=== PATIENT | female | born 1930 | race Caucasian/White ===

== ENCOUNTER 2019-07-10 03:24 | Observation (INO) ==
[2019-07-10 03:35] LABS: ABG Base Excess -2.6 mmol/L (-2.4-2.3); ABG HCO3 21.6 mmhg (22.0-26.0); ABG Oxygen Saturation 95 % (90-100); ABG PCO2 32.7 mmhg (35.0-45.0); ABG PH 7.44 mmol/L (7.35-7.45); ABG PO2 74.5 mmhg (80-100); ABG TCO2 22.6 mmhg (23-27)
[2019-07-10 03:36] LABS: Allen's Test Acceptable; Oxygen ROOM AIR %
--- NOTE | 2019-07-10 03:41 | Emergency Department Note ---
ED Disposition Clinical Impression: DARSHANA (acute kidney injury) Chest pain Qualifiers: Chest pain type: precordial pain Qualified Code(s): R07.2 - Precordial pain A-fib Qualifiers: Atrial fibrillation type: unspecified Qualified Code(s): I48.91 - Unspecified atrial fibrillation Hypothyroidism Qualifiers: Hypothyroidism type: acquired Qualified Code(s): E03.9 - Hypothyroidism, unspecified Disposition: Admitted as Observation Condition on Discharge: Good - Critical Care Critical Care Time: No Attestation: On , the high probability of a clinically significant, sudden or life threatening deterioration of the following system(s) required my full and direct attention, intervention and personal management. The time I documented below is in addition to time spent performing reported procedures but includes the following listed in this critical care notation. Medical Decision Making - Medical Records Medical records reviewed: Yes: I reviewed the patient's medical records. - Santy Inquiry Pt receiving controlled substance: No Vital Signs: 07/10/19 03:25 07/10/19 05:25 Temperature 98.7 F Temperature Source Oral Pulse Rate [Left Radial] 78 84 Respiratory Rate 20 17 Blood Pressure [Right Arm] 163/84 H 158/64 H Blood Pressure Mean [Right Arm] 110 95 Blood Pressure Source [Right Arm] Automatic Cuff Automatic Cuff Blood Pressure Position [Right Arm] Sitting Right Lateral 02 Sat by Pulse Oximetry 97 100 Oxygen Delivery Method Room Air Nasal Cannula Oxygen Flow Rate (LPM) 2 - Lab Data Lab results reviewed: Yes: I reviewed the patient's lab results. Lab Results 07/10/19 03:27: Troponin I < 0.02 07/10/19 03:27: WBC 6.9, RBC 4.54, Hgb 14.4, Hct 43.5, MCV 95.8, MCH 31.8 H, MCHC 33.2, RDW 13.6, Plt Count 233, MPV 8.1, Neut % (Auto) 67.1, Lymph % (Auto) 21.7, [place] % (Auto) 8.8, Eos % (Auto) 1.5, Baso % (Auto) 0.8, Neut # (Auto) 4.6, Lymph # (Auto) 1.5, [place] # (Auto) 0.6, Eos # (Auto) 0.1, Baso # (Auto) 0.1 07/10/19 03:27: Sodium 130 L, Potassium 4.5, Chloride 94 L, Carbon Dioxide 26, Anion Gap 14.5, BUN 32 H, Creatinine 1.47 H, Estimated Creat Clear 28, Estimated GFR 34 L, Est GFR ( Amer) 41 L, Glucose 140 H, Calcium 9.2 07/10/19 03:27: Total Bilirubin 1.2 H, Direct Bilirubin 0.4 H, Indirect Bilirubin 0.8, AST 32, ALT 36, Alkaline Phosphatase 109, Total Protein 7.5, Albumin 4.0 07/10/19 03:33: Specimen Source Left radial, O2 % Room air, ABG pH 7.44, ABG pCO2 32.7 L, ABG pO2 74.5 L, ABG HCO3 21.6 L, ABG Total CO2 22.6 L, ABG O2 Saturation 95, ABG Base Excess -2.6 L, Chapo Test Acceptable Result diagrams: 07/10/19 03:27 07/10/19 03:27 Orders (Tests/Meds): ED MEDICATIONS Discontinued Medications Generic Name Dose Route Start Last Admin Trade Name Freq PRN Reason Stop Dose Admin Aspirin 324 mg 07/10/19 03:35 07/10/19 03:37 Aspirin 81mg Chewable Tablet PO 07/10/19 03:36 324 mg ONCE ONE Administration Nitroglycerin 1 gm 07/10/19 05:40 Nitroglycerin 1 Inch Oint Udp TD 07/10/19 05:41 ONCE ONE ORDERS Category Date Time Status BNP [B-Type Natriuretic Peptide] Stat Lab 07/10/19 03:27 Received Troponin I Q3H Lab 07/10/19 06:45 Ordered Troponin I Q3H Lab 07/10/19 09:45 Ordered Arterial Blood Gas Stat RT 07/10/19 03:34 Ordered - Radiology Data #1 Image(s): Chest Image Reviewed: Yes I reviewed the patient's radiology image Preliminary Findings: Abnormal (changes rt base ) - ECG Data Tracing #1 Arrhythmias present: afib Ischemic changes: non-specific ST-T wave changes - Physician Consults Physician Consulted: lexy Reason -: Admission - DANIELLE Score for Non-Stemi Age of Patient: 80-89 years old Heart Rate: 70-89 bpm Systolic Blood Pressure: 160-199 mmHg Serum Creatinine: 1.20-1.59 mg/dl CHF [place] Class: II-Pulmonary Rales or Jug Other Risk Factors: None Non-Stemi Risk Score: 140 Resp/SOB HPI - General Chief Complaint: Shortness of Breath/Dyspnea Stated Complaint: CHEST PAIN; DIFFICULTY BREATHING Time Seen by Provider: 07/10/19 03:40 Mode of Arrival: Ambulatory Source of Information: Patient, Medical Record Limitations: No Limitations Description of Symptoms (Recalled from ER Triage Doc. by RN): pt stated she woke up with sharp pain in the center of her left chest this morning about an hour ago rating a 10 on a 0-10 pain scale and SOB. pt stated she is no longer experiencing chest pain at this time. - History of Present Illness pt with episode of chest pain which lasted about 30 min with sob - hx of a fib MD Complaint: shortness of breath, chest pain Onset (ago): minute(s) Severity: moderate Consistency/Duration: now resolved Associated symptoms: denies other symptoms Treatment prior to arrival: none - Related Data Home oxygen amount: none Home Medications Medication Instructions Recorded Confirmed amlodipine 5 mg tablet 5 mg PO ONCE 07/25/17 07/10/19 apixaban 5 mg tablet 5 mg PO BID 07/25/17 07/10/19 folic acid-vit B6-vit B12 2.5 1 tab PO BID 07/25/17 07/10/19 mg-25 mg-1 mg tablet isosorbide mononitrate 30 mg 30 mg PO QAM 07/25/17 07/10/19 tablet,extended release 24 hr levothyroxine 125 mcg capsule 125 mcg PO ONCE 07/25/17 07/10/19 metformin 500 mg tablet 500 mg PO BID 07/25/17 07/10/19 metoprolol succinate 50 mg 50 mg PO ONCE 07/25/17 07/10/19 tablet,extended release 24 hr Allergies Allergy/AdvReac Type Severity Reaction Status Date / Time No Known Allergies Allergy Verified 07/25/17 09:53 [facility] History - Hepatitis A Screen Drug use history?: No High risk sexual behaviors?: No History of sexually transmitted infection?: No Currently employed?: No Childcare worker?: No Do you have indoor plumbing?: Yes Do you have electricity?: Yes Attestation statement:: This patient has been screened for Hepatitis A risk factors. I have reviewed the patient's past medical history: Yes Medical History: Reports:: Diabetes Mellitus Type 2 Laterality Cases: Bilateral: Tonsillectomy - Social History Smoking Status: Unknown if ever smoked Alcohol Intake: never Occupational Status: other ROS Obtained: Yes All systems reviewed & no additional complaints - Constitutional Constitutional: Denies fever(s) - Eyes Eyes: Denies change in vision - ENT Ears, Nose, Mouth, and Throat: Denies sore throat - Cardiovascular Cardiovascular: Reports chest pain, Denies dyspnea - Respiratory Respiratory: No cough - Gastrointestinal Gastrointestingal: Denies: abdominal pain - Genitourinary Female Genitourinary: Denies hematuria - Musculoskeletal Musculoskeletal: Denies joint swelling - Integumentary/Breasts Skin/Breast: Denies rash - Neurologic Neurologic: Denies focal weakness, Denies seizure-like activity Physical Exam - General General appearance: alert - Head Head exam: normocephalic - Eye Eye exam: Present: PERRL, EOMI. Absent: scleral icterus - ENT ENT exam: Present: mucous membranes dry - Neck Neck exam: Present: trachea midline - Respiratory Respiratory exam: Present: normal lung sounds bilaterally. Absent: respiratory distress - Cardiovascular Cardiovascular exam: Present: irregular rhythm, systolic murmur, +S4 - Abdominal Exam Abdominal exam: Present: soft. Absent: tenderness - Extremities Exam Extremities exam: Absent: calf tenderness - Neurological Exam Neurological exam: Present: alert, CN II-XII intact - Psychiatric Psychiatric exam: Present: normal affect - Skin Skin exam: Absent: rash
[2019-07-10 03:45] LABS: Basophils # 0.1 K/mm3 (0-0.2); Basophils % 0.8 % (0.1-2.0); Eosinophils # 0.1 K/mm3 (0.0-0.4); Eosinophils % 1.5 % (0.1-12.0); Hematocrit 43.5 % (37.0-47.0); Hemoglobin 14.4 g/dL (12.2-16.2); Lymphocytes # 1.5 K/mm3 (0.7-4.5); Lymphocytes % 21.7 % (10-50); Mean Corpuscular HGB Conc 33.2 g/dL (31.8-35.4); Mean Corpuscular Volume 95.8 fl (81-99); Mean Platelet Volume 8.1 fl (7.4-10.4); Monocytes # 0.6 K/mm3 (0.1-1.0); Monocytes % 8.8 % (1.7-9.3); Neutrophils # 4.6 K/mm3 (1.8-7.8); Neutrophils % 67.1 % (37.0-80.0); Platelet Count 233 K/mm3 (142-424); Red Blood Count 4.54 M/mm3 (4.20-5.40); Red Cell Distribution Width 13.6 % (11.5-17.5); White Blood Count 6.9 K/mm3 (4.8-10.8)
[2019-07-10 03:59] LABS: Anion Gap 14.5 mEq/L (5-15); Calcium 9.2 mg/dL (8.5-10.1)
[2019-07-10 04:51] LABS: Bilirubin,Direct 0.4 mg/dL (0.0-0.2); Bilirubin,Indirect 0.8 mg/dL (0.0-0.9); Bilirubin,Total 1.2 mg/dL (0.2-1.0); Total Protein,Serum 7.5 g/dL (6.4-8.2)
--- NOTE | 2019-07-10 07:58 | Pharmacy Consult Notes ---
[facility] Pharmacy VTE Monitoring - Patient Demographics Admission date: 07/10/19 Report Date: 07/10/19 Time: 07:57 Allergies/Adverse Reactions: Patient Allergies No Known Allergies Allergy (Verified 07/25/17 09:53) Height: 1.57 m Weight: 64.127 kg Patient Problems: Current Active Problems Chest pain (Acute) DARSHANA (acute kidney injury) (Acute) A-fib (Acute) Hypothyroidism (Acute) - VTE Risk Labs: VTE Related Lab Results Hgb 14.4 g/dL (12.2-16.2) 07/10/19 03:27 Hct 43.5 % (37.0-47.0) 07/10/19 03:27 Plt Count 233 K/mm3 (142-424) 07/10/19 03:27 BUN 32 mg/dL (7-18) H 07/10/19 03:27 Creatinine 1.47 mg/dL (0.55-1.02) H 07/10/19 03:27 Estimated Creat Clear 28 mL/min (50-200) 07/10/19 03:27 Was VTE Risk Assessment Performed: Yes VTE Score: 1 VTE Risk Level: Very Low Risk - Prophylaxis VTE Prophylaxis Ordered?: Yes Types of VTE Prophylaxis: TEDS Knee High, Pharmacological Pharmacologic Type: Other (ELIQUIS) - VTE Diagnosis Confirmed Treatment or plan recommended: Continue Current Treatment
--- NOTE | 2019-07-10 08:12 | History & Physical Report ---
*Admission Date: 07/10/19 *Chief complaint: chest pain *History of present illness: Ms. Kaminski is an 88-year-old female with a history of hyperlipidemia, hypothyroidism, solitary kidney, COPD, GERD, type 2 diabetes, and coronary artery disease. Her protein purification scientist is Dr. Keane and she thinks she has received 2 stents in the past, one in 2011 and one in 2014. She states approximately 1 week ago she had some left-sided chest pain that radiated up into her neck. This resolved on its own. She woke up in the middle of the night last night with left-sided chest pain that radiated into her back. She states she was very short of breath but denied any diaphoresis. The pain continued to worsen over the next hour, therefore she presented to the emergency room. She states she was given aspirin and nitroglycerin in the emergency room and her chest pain improved. By the time she reached the second floor, it was gone and has not returned. She did feel some palpitations along with the chest pain. She has a family history of heart disease. She does not currently smoke. She was admitted for further evaluation and treatment and cardiology was consulted. [facility] History I have reviewed the patient's past medical history: Yes Medical History: Reports:: Atrial Fibrillation, Chronic Obstructive Pulmonary Disease (COPD), Coronary Artery Disease, Diabetes Mellitus Type 2, Gastroesophageal Reflux Disease(GERD), Hypertension Denies:: Cancer, Diabetes Mellitus Type 1, Internal Pacemaker, MRSA *Have you ever received a pneumonia vaccine?: Yes *Have you received a flu vaccine this season?: No (PT UNSURE) Other Medical History: Reports: Hypothyroidism, Thyroid Disease, Other (Solitary kidney) Laterality Cases: Bilateral: Cataract, Tonsillectomy Other Surgeries: Yes: Cardiac Catheterization, Coronary Stent, Thyroidectomy, Other (kidney removed, carotid endarterectomy, uterine prolapse). No: Pacemaker Amputation: No Fractures: No - *Social History Educational Level: Completed High School Smoking Status: Never smoker Alcohol Intake: never *Occupational Status:: retired Housing: house Household Members: family *Travel in the last 8 weeks: None Family Hx:: Coronary Artery Disease, Diabetes Review of Systems - Constitutional Denies chills, Denies fever(s), Denies weakness - Eyes Denies blurry vision, Denies double vision - ENT Reports nasal congestion, Denies sore throat - *Cardiovascular Reports chest pain, Reports shortness of breath, Reports rapid, pounding, or irregular heartbeat, Denies excessive sweating, Denies leg swelling - *Respiratory Reports shortness of breath, Denies chest congestion, Denies cough - *Gastrointestinal Denies abdominal pain, Denies change in stools, Denies nausea, Denies vomiting - *Genitourinary Denies difficulty urinating, Denies painful urination - *Musculoskeletal Denies joint pain, Denies body aches - *Neurologic Denies localized weakness, Denies headache(s), Denies seizure-like activity, Denies dizziness, Denies weakness Meds Home Medications Medication Instructions Recorded Confirmed Type amlodipine 5 mg tablet 5 mg PO ONCE 07/25/17 07/10/19 History apixaban 5 mg tablet 5 mg PO BID 07/25/17 07/10/19 History folic acid-vit B6-vit B12 2.5 1 tab PO BID 07/25/17 07/10/19 History mg-25 mg-1 mg tablet isosorbide mononitrate 30 mg 30 mg PO QAM 07/25/17 07/10/19 History tablet,extended release 24 hr levothyroxine 125 mcg capsule 125 mcg PO ONCE 07/25/17 07/10/19 History metformin 500 mg tablet 500 mg PO BID 07/25/17 07/10/19 History metoprolol succinate 50 mg 50 mg PO ONCE 07/25/17 07/10/19 History tablet,extended release 24 hr Allergies Allergy/AdvReac Type Severity Reaction Status Date / Time No Known Allergies Allergy Verified 07/25/17 09:53 Exam Vital signs and Labs for Last 24 Hours: Temp Pulse Resp BP Pulse Ox 98.7 F 82 18 152/82 H 95 07/10/19 06:36 07/10/19 06:36 07/10/19 06:36 07/10/19 06:36 07/10/19 05:48 Laboratory Results - last 24 hr 07/10/19 03:27: Troponin I < 0.02 07/10/19 03:27: WBC 6.9, RBC 4.54, Hgb 14.4, Hct 43.5, MCV 95.8, MCH 31.8 H, MCHC 33.2, RDW 13.6, Plt Count 233, MPV 8.1, Neut % (Auto) 67.1, Lymph % (Auto) 21.7, [place] % (Auto) 8.8, Eos % (Auto) 1.5, Baso % (Auto) 0.8, Neut # (Auto) 4.6, Lymph # (Auto) 1.5, [place] # (Auto) 0.6, Eos # (Auto) 0.1, Baso # (Auto) 0.1 07/10/19 03:27: Sodium 130 L, Potassium 4.5, Chloride 94 L, Carbon Dioxide 26, Anion Gap 14.5, BUN 32 H, Creatinine 1.47 H, Estimated Creat Clear 28, Estimated GFR 34 L, Est GFR ( Amer) 41 L, Glucose 140 H, Calcium 9.2 07/10/19 03:27: Total Bilirubin 1.2 H, Direct Bilirubin 0.4 H, Indirect Bilirubin 0.8, AST 32, ALT 36, Alkaline Phosphatase 109, Total Protein 7.5, Albumin 4.0 07/10/19 03:27: B-Natriuretic Peptide 222 H 07/10/19 03:33: Specimen Source Left radial, O2 % Room air, ABG pH 7.44, ABG pCO2 32.7 L, ABG pO2 74.5 L, ABG HCO3 21.6 L, ABG Total CO2 22.6 L, ABG O2 Saturation 95, ABG Base Excess -2.6 L, Chapo Test Acceptable I & O for Last 24 hours: Intake & Output 07/07/19 07/08/19 07/09/19 07/10/19 11:59 11:59 11:59 11:59 Weight 141 lb 6 oz - Constitutional no acute distress - *Routine HEENT Exam Head: Present: normocephalic Eye: Present: EOMI, PERRL ENT: Present: mucous membranes dry - *Routine Neck Exam Present: supple. Absent: carotid bruit, lymphadenopathy - *Routine Respiratory Exam Present: CTA bilaterally - *Routine Cardiovascular Exam Present: irregularly irregular - *Routine Abdominal Exam Present: soft, normoactive bowel sounds. Absent: tenderness - *Routine Extremities Exam Absent: cyanosis, clubbing, edema - *Routine Skin Exam Present: warm. Absent: rash - *Routine Neurological Exam Present: alert, oriented X3 H&P: Result - Impressions CXR - CHF with bibasilar airspace disease and small bilateral effusions Chest CT - Cardiomegaly with bilateral pleural effusions and bibasilar atelectasis. Mild interstitial thickening which may be due to CHF. Assessment and Plan (1) Chest pain Current visit: Yes Status: Acute Qualifiers: Chest pain type: precordial pain Qualified Code(s): R07.2 - Precordial pain Category: Medical Code(s): R07.9 - Chest pain, unspecified (2) CHF (congestive heart failure) Current visit: Yes Status: Acute Category: Medical Code(s): I50.9 - Heart failure, unspecified (3) DARSHANA (acute kidney injury) Current visit: Yes Status: Acute Category: Medical Code(s): N17.9 - Acute kidney failure, unspecified (4) A-fib Current visit: Yes Status: Acute Qualifiers: Atrial fibrillation type: unspecified Qualified Code(s): I48.91 - Unspecified atrial fibrillation Category: Medical Code(s): I48.91 - Unspecified atrial fibrillation (5) Hyperlipidemia Current visit: Yes Status: Chronic Category: Medical Code(s): E78.5 - Hyperlipidemia, unspecified (6) COPD (chronic obstructive pulmonary disease) Current visit: Yes Status: Chronic Category: Medical Code(s): J44.9 - Chronic obstructive pulmonary disease, unspecified (7) GERD (gastroesophageal reflux disease) Current visit: Yes Status: Chronic Category: Medical Code(s): K21.9 - Gastro-esophageal reflux disease without esophagitis (8) Type 2 diabetes mellitus Current visit: Yes Status: Chronic Category: Medical Code(s): E11.9 - Type 2 diabetes mellitus without complications (9) Coronary artery disease Current visit: Yes Status: Chronic Category: Medical Code(s): I25.10 - Atherosclerotic heart disease of [place] coronary artery without angina pectoris (10) Hypothyroidism Current visit: Yes Status: Chronic Qualifiers: Hypothyroidism type: acquired Qualified Code(s): E03.9 - Hypothyroidism, unspecified Category: Medical Code(s): E03.9 - Hypothyroidism, unspecified (11) Solitary kidney Current visit: Yes Status: Chronic Category: Medical Code(s): 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 The patient's chest x-ray and chest CT both showed CHF with effusions. She will likely need some Lasix, however she does have renal insufficiency and a solitary kidney. Will discuss with Dr. Rodriguez.
--- NOTE | 2019-07-10 11:04 | Consult Report ---
History of Present Illness Consult date: 07/10/19 Requesting physician: Charlotte Rodriguez Consult reason: chest pain, atrial fibrillation, shortness of breath Chief complaint: Chest pain and shortness of breath Additional Medical History:: 1. Congestive Heart failure (07/10/2019) 2. Pleural effusion (07/10/2019) 3. Atrial fibrillation a. Eliquis 4. Solitary Kidney Insufficiency a. Creatinine 1.47 b. BUN 32 5. COPD a. Controlled b. Ex smoker- Quit 10 + years ago 6. Coronary Artery Disease a. Dr. Pierce [place] St[place] in 2011 and 2014 in [place] 7. Type II Diabetes Mellitus a. Controlled 8. Hypertension a. Controlled. 9. Hypothyroidism a. Thyroid therapy History of present illness: 88-year-old female presented to emergency room during the evening with complaints of chest pain with radiation down the left arm also radiation to the back. Patient stated the pain started around 2 AM this morning and lasted for over an hour. Upon arrival to the emergency room patient was given nitroglycerin and oxygen, patient stated the chest pain resolved. Patient denies chest pain this a.m. Patient is resting comfortably. Patient stated she has had several episodes of this chest pain for the past week or so. As of breath is accompanied with these chest pain episodes. Patient denies dizziness or nausea. She denies cough or fever. Patient does have swelling noted of the lower extremities. Lung sounds are noted with rales in the lower bases. Patient is on oxygen at 2 L by nasal cannula. Patient stated the oxygen is helping her shortness of breath. Patient has known coronary artery disease. In 2011 and 2014, patient stated she underwent left heart catheterizations both requiring stenting. These catheterizations were performed by Dr. Keane in [place]. Patient stated she has not seen Dr. Keane for some time. Patient does have history of atrial fibrillation requiring anti-coagulation. Patient is a type II diabetic treated with Metformin. Patient has known controlled hypertension. Patient was a former smoker and has known COPD. Patient does have known hypothyroidism treated with thyroid therapy. Patient does have solitary kidney with insufficiency. Initial lab work was performed in the emergency room. Sodium 130, creatinine 1.47, BUN 32 and BNP 222. Serial cardiac enzymes were negative. Chest x-ray revealed congestive heart failure with bibasilar airspace small bilateral effusions. CT of the chest revealed cardiomegaly with bilateral pleural effusions and mild interstitial thickening which could indicate congestive heart failure. Initial EKG revealed atrial fibrillation at a controlled ventricular rate of 77 bpm. Discussed plan of care with Dr. Rodriguez and Dr. Mccollum. Dr. Rodriguez is recommending to treat congestive heart failure prior to undergoing heart catheterization at this time. Cardiology will hold off on heart catheterization until further notice from Dr. Rodriguez or patient becomes clinically hemodynamic unstable. Recommend echocardiogram to assess LV function and valve status. Thank you for allowing cardiology to participate in the care of this patient. [facility] History Medical History: Reports:: Atrial Fibrillation, Chronic Obstructive Pulmonary Disease (COPD), Coronary Artery Disease, Diabetes Mellitus Type 2, Gastroesophageal Reflux Disease(GERD), Hypertension Denies:: Cancer, Diabetes Mellitus Type 1, Internal Pacemaker, MRSA *Have you ever received a pneumonia vaccine?: Yes *Have you received a flu vaccine this season?: No (PT UNSURE) Other Medical History: Reports: Hypothyroidism, Thyroid Disease, Other (Solitary kidney) Laterality Cases: Bilateral: Cataract, Tonsillectomy Other Surgeries: Yes: Cardiac Catheterization, Coronary Stent, Thyroidectomy, Other (kidney removed, carotid endarterectomy, uterine prolapse). No: Pacemaker Amputation: No Fractures: No - *Social History Educational Level: Completed High School Smoking Status: Never smoker Alcohol Intake: never *Occupational Status:: retired Housing: house Household Members: family *Travel in the last 8 weeks: None Family Hx:: Coronary Artery Disease, Diabetes Meds Home Medications Medication Instructions Recorded Confirmed Type amlodipine 5 mg tablet 5 mg PO BID 07/25/17 07/10/19 History apixaban 5 mg tablet 2.5 mg PO BID 07/25/17 07/10/19 History isosorbide mononitrate 30 mg 30 mg PO DAILY 07/25/17 07/10/19 History tablet,extended release 24 hr metformin 500 mg tablet 500 mg PO BID 07/25/17 07/10/19 History metoprolol succinate 50 mg 50 mg PO DAILY 07/25/17 07/10/19 History tablet,extended release 24 hr Cyanocobalamin/Folic AC/Vit B6 1 tab PO DAILY 07/10/19 07/10/19 History [Folbee Tablet] Levothyroxine Sodium 137 mcg PO DAILY 07/10/19 07/10/19 History [Levothyroxine 137mcg (0.137mg) Tab] Losartan/Hydrochlorothiazide 1 tab PO DAILY 07/10/19 07/10/19 History [Losartan-Hctz 100-12.5 mg Tab] Sertraline HCl 25 mg PO DAILY 07/10/19 07/10/19 History Allergies Allergy/AdvReac Type Severity Reaction Status Date / Time No Known Allergies Allergy Verified 07/25/17 09:53 Review of Systems - Review of Systems Review of systems:: pertinent systems reviewed and negative unless documented below - Constitutional Reports fatigue, Reports lack of energy - *Cardiovascular Reports chest pain, Reports chest pain at rest, Reports shortness of breath, Reports shortness of breath with activity, Reports irregular heart rhythm, Reports radiating jaw, neck or arm pain, Denies fast heart rate, Denies slow heart rate - *Respiratory Reports shortness of breath, Reports shortness of breath with activity, Denies chest congestion, Denies cough, Denies coughing up blood, Denies wheezing - *Gastrointestinal Denies abdominal pain, Denies belching, Denies bloating, Denies change in stools - *Musculoskeletal Denies abnormal walking, Denies joint pain, Denies neck pain, Denies numbness, Denies radiating pain into limb - Integumentary/Breasts Reports dry skin, Denies bleeding lesions, Denies rash - *Neurologic Denies localized weakness, Denies headache(s), Denies tingling/numbness/burning sensations, Denies seizure-like activity, Denies dizziness, Denies weakness Exam Vital signs and Labs for Last 24 Hours: Temp Pulse Resp BP Pulse Ox 98.0 F 78 18 137/71 95 07/10/19 08:00 07/10/19 08:00 07/10/19 08:00 07/10/19 08:00 07/10/19 08:00 Laboratory Results - last 24 hr 07/10/19 03:27: Troponin I < 0.02 07/10/19 03:27: WBC 6.9, RBC 4.54, Hgb 14.4, Hct 43.5, MCV 95.8, MCH 31.8 H, MCHC 33.2, RDW 13.6, Plt Count 233, MPV 8.1, Neut % (Auto) 67.1, Lymph % (Auto) 21.7, Knox % (Auto) 8.8, Eos % (Auto) 1.5, Baso % (Auto) 0.8, Neut # (Auto) 4.6, Lymph # (Auto) 1.5, Knox # (Auto) 0.6, Eos # (Auto) 0.1, Baso # (Auto) 0.1 07/10/19 03:27: Sodium 130 L, Potassium 4.5, Chloride 94 L, Carbon Dioxide 26, Anion Gap 14.5, BUN 32 H, Creatinine 1.47 H, Estimated Creat Clear 28, Estimated GFR 34 L, Est GFR ( Amer) 41 L, Glucose 140 H, Calcium 9.2 07/10/19 03:27: Total Bilirubin 1.2 H, Direct Bilirubin 0.4 H, Indirect Bilirubin 0.8, AST 32, ALT 36, Alkaline Phosphatase 109, Total Protein 7.5, Albumin 4.0 07/10/19 03:27: B-Natriuretic Peptide 222 H 07/10/19 03:33: Specimen Source Left radial, O2 % Room air, ABG pH 7.44, ABG pCO2 32.7 L, ABG pO2 74.5 L, ABG HCO3 21.6 L, ABG Total CO2 22.6 L, ABG O2 Saturation 95, ABG Base Excess -2.6 L, Chapo Test Acceptable 07/10/19 07:35: Troponin I < 0.02 07/10/19 10:00: Troponin I < 0.02 I & O for Last 24 hours: Intake & Output 07/07/19 07/08/19 07/09/19 07/10/19 23:59 23:59 23:59 23:59 Output Total 550 / 550 Balance -550 / -550 Weight 134 lb 8 oz - Constitutional mild distress, average body habitus, cooperative - *Routine HEENT Exam ENT: Present: mucous membranes moist - *Routine Neck Exam Present: supple, full ROM, normal carotid upstroke. Absent: JVD, carotid bruit, lymphadenopathy - Routine Chest/Breast/Axilla Exam Chest wall: Absent: tenderness, mass, pacemaker - *Routine Respiratory Exam Present: rales. Absent: accessory muscle use - *Routine Cardiovascular Exam Present: RRR, Normal S1, Normal S2, irregular rhythm. Absent: murmur, gallop, click, bradycardia, JVD - *Routine Abdominal Exam Present: soft, normoactive bowel sounds. Absent: tenderness, distended - *Routine Extremities Exam Present: edema, full ROM, pulses intact, normal capillary refill. Absent: cyanosis, clubbing, Mitra's sign - *Routine Skin Exam Present: intact, dry, warm. Absent: cyanosis, erythema, lesions - *Routine Neurological Exam Present: alert, oriented X3, CN II-XII intact, normal reflexes, moving all extremities, normal speech - Routine Psychiatric Exam Present: normal affect, normal thought process, cooperative. Absent: depressed Assessment and Plan (1) Chest pain Current visit: Yes Status: Acute Qualifiers: Chest pain type: precordial pain Qualified Code(s): R07.2 - Precordial pain Category: Medical Code(s): R07.9 - Chest pain, unspecified (2) CHF (congestive heart failure) Current visit: Yes Status: Acute Category: Medical Code(s): I50.9 - Heart failure, unspecified (3) DARSHANA (acute kidney injury) Current visit: Yes Status: Acute Category: Medical Code(s): N17.9 - Acute kidney failure, unspecified (4) A-fib Current visit: Yes Status: Acute Qualifiers: Atrial fibrillation type: unspecified Qualified Code(s): I48.91 - Unspecified atrial fibrillation Category: Medical Code(s): I48.91 - Unspecified atrial fibrillation (5) Hyperlipidemia Current visit: Yes Status: Chronic Category: Medical Code(s): E78.5 - Hyperlipidemia, unspecified (6) COPD (chronic obstructive pulmonary disease) Current visit: Yes Status: Chronic Category: Medical Code(s): J44.9 - Chronic obstructive pulmonary disease, unspecified (7) GERD (gastroesophageal reflux disease) Current visit: Yes Status: Chronic Category: Medical Code(s): K21.9 - Gastro-esophageal reflux disease without esophagitis (8) Type 2 diabetes mellitus Current visit: Yes Status: Chronic Category: Medical Code(s): E11.9 - Type 2 diabetes mellitus without complications (9) Coronary artery disease Current visit: Yes Status: Chronic Category: Medical Code(s): I25.10 - Atherosclerotic heart disease of [place] coronary artery without angina pectoris (10) Hypothyroidism Current visit: Yes Status: Chronic Qualifiers: Hypothyroidism type: acquired Qualified Code(s): E03.9 - Hypothyroidism, unspecified Category: Medical Code(s): E03.9 - Hypothyroidism, unspecified (11) Solitary kidney Current visit: Yes Status: Chronic Category: Medical Code(s): Q60.0 - Renal agenesis, unilateral - Assessment and plan all Dx Assessment and Plan for all problems:: Plan: 1. Obtain echocardiogram to access LV function and valve status. 2. Hold off on further cardiac testing at this time due to CHF. 3. Please notify Cardiology if pt becomes clinically hemodynamically unstable. 4. LDL goal<55. Pt is on a statin.
--- NOTE | 2019-07-10 14:10 | Cardiology Report ---
APPROVED REPORT EXAM: Comprehensive 2D, Doppler, and color-flow Echocardiogram Safety Admin Assistant: Jessica Cassidy RDCS Ht: 5 ft 1 in Wt: 140lbs BSA: 1.62 BP: 163/84 mmHg Indications: CP, SOB, COPD, HTN, hyperlipidemia, Diabetes, hx of AFIB 2D Dimensions LVOT 1.86 cm (M/F) 1.5-2.5 M-Mode Dimensions RVDd 2.37 cm (0.9-2.6)LVDd 4.43 cm (3.5-5.7) LVDs 2.66 cm (3.5-5.7)IVSd 1.01 cm (0.6-1.1) PWd 0.93 cm (0.6-1.1)EF (Teich) 70.80% FS 40.00% EDV (Teich) 89.10 mL ESV (Teich) 26.00 mL Left Ventricle Left atrium is moderately enlarged, left ventricle is normal size, mild concentric left ventricular hypertrophy, visually estimated ejection fraction 55% with no regional wall motion abnormality. Diastolic parameters are inconclusive. Right Ventricle Right atrium and right ventricle moderately enlarged, contractility right ventricle is normal. Aortic Valve Aortic valve is thickened and calcified leaflet chordae display good mobility, there is no aortic stenosis, there is moderate aortic insufficiency. Mitral Valve Mitral valve leaflets are minimally thickened, there is no mitral stenosis, there is mild mitral regurgitation. Tricuspid Valve Tricuspid valve leaflets are minimally thickened, there is moderate to severe tricuspid regurgitation, calculated right ventricular systolic pressure 70 mmHg, inferior vena cava is dilated without significant inspiratory collapse. Pulmonic Valve Pulmonic valve is poorly visualized. Great Vessels Aortic root is normal size. Pericardium No significant pericardial effusion noted. Conclusion 1. Biatrial enlargement, normal left ventricular size, mild concentric left ventricular hypertrophy, visually estimated ejection fraction of 55% with no regional wall motion abnormality, diastolic parameters are inconclusive. 2. Moderately enlarged right atrium right ventricle, contractility right ventricle is normal. 3. Thickened and calcified aortic valve without aortic stenosis, there is moderate aortic insufficiency. 4. Mild mitral and moderate to severe tricuspid regurgitation, calculated right ventricular systolic pressure 70 mmHg. 5. Inferior vena cava is dilated without significant inspiratory collapse. 6. No significant pericardial effusion noted. Electronically signed by : Bebeto Fay, 07/10/2019 14:09:39
[2019-07-11 07:22] LABS: Basophils % 0.3 % (0.1-2.0); Eosinophils % 0.4 % (0.1-12.0); Hematocrit 39.1 % (37.0-47.0); Hemoglobin 13.3 g/dL (12.2-16.2); Lymphocytes # 1.3 K/mm3 (0.7-4.5); Lymphocytes % 15.7 % (10-50); Mean Corpuscular Volume 93.7 fl (81-99); Mean Platelet Volume 8.5 fl (7.4-10.4); Monocytes # 0.7 K/mm3 (0.1-1.0); Monocytes % 8.9 % (1.7-9.3); Neutrophils # 6.1 K/mm3 (1.8-7.8); Neutrophils % 74.6 % (37.0-80.0); Platelet Count 208 K/mm3 (142-424); Red Blood Count 4.17 M/mm3 (4.20-5.40); Red Cell Distribution Width 13.6 % (11.5-17.5); White Blood Count 8.2 K/mm3 (4.8-10.8)
[2019-07-11 07:33] LABS: Anion Gap 14.8 mEq/L (5-15); Calcium 8.9 mg/dL (8.5-10.1)
--- NOTE | 2019-07-11 13:50 | Progress Note ---
Internal Medicine - PN: Subj *Date: 07/11/19 *Time: 13:47 Interval history: The patient was seen this morning and was stable. She had a good night. She is less short of breath. She is maintaining a good oxygen saturation with the nasal cannula off. She seems to have achieved a dry weight of 134 pounds. Her lungs are quite clear. She has no leg edema. She would like to be discharged. Exam Vital signs and Labs for Last 24 Hours: Temp Pulse Resp BP Pulse Ox 97.8 F 70 24 136/52 L 96 07/11/19 12:00 07/11/19 12:00 07/11/19 12:00 07/11/19 12:00 07/11/19 12:00 Laboratory Results - last 24 hr 07/10/19 16:49: POC Glucose 156 H 07/10/19 20:24: POC Glucose 199 H 07/10/19 22:46: POC Glucose 113 H 07/11/19 05:53: POC Glucose 120 H 07/11/19 06:18: WBC 8.2, RBC 4.17 L, Hgb 13.3, Hct 39.1, MCV 93.7, MCH 31.8 H, MCHC 34.0, RDW 13.6, Plt Count 208, MPV 8.5, Neut % (Auto) 74.6, Lymph % (Auto) 15.7, Gregg % (Auto) 8.9, Eos % (Auto) 0.4, Baso % (Auto) 0.3, Neut # (Auto) 6.1, Lymph # (Auto) 1.3, Gregg # (Auto) 0.7, Eos # (Auto) 0.0, Baso # (Auto) 0.0 07/11/19 06:18: Sodium 132 L, Potassium 3.8, Chloride 95 L, Carbon Dioxide 26, Anion Gap 14.8, BUN 27 H, Creatinine 1.36 H, Estimated Creat Clear 29, Estimated GFR 37 L, Est GFR ( Amer) 45 L, Glucose 137 H, Calcium 8.9 07/11/19 11:32: POC Glucose 136 H I & O for Last 24 hours: Intake & Output 07/09/19 07/10/19 07/11/19 07/12/19 11:59 11:59 11:59 11:59 Intake Total 1138 / 1138 480 / 480 Output Total 950 / 950 2800 / 2800 Balance -950 / -950 -1662 / -1662 480 / 480 Weight 134 lb 8 oz 134 lb 5 oz - Constitutional no acute distress - *Routine HEENT Exam Eye: Present: PERRL ENT: Present: mucous membranes moist - *Routine Neck Exam Absent: JVD - Routine Chest/Breast/Axilla Exam Chest wall: Absent: tenderness - *Routine Respiratory Exam Present: CTA bilaterally - *Routine Cardiovascular Exam Present: irregular rhythm (Suggests controlled atrial fib) - *Routine Abdominal Exam Present: soft. Absent: tenderness - *Routine Extremities Exam Present: ANGELA stockings. Absent: edema - *Routine Neurological Exam Present: alert, oriented X3 Assessment and Plan (1) Chest pain Current visit: Yes Status: Acute Qualifiers: Chest pain type: precordial pain Qualified Code(s): R07.2 - Precordial pain Category: Medical Code(s): R07.9 - Chest pain, unspecified (2) CHF (congestive heart failure) Current visit: Yes Status: Acute Category: Medical Code(s): I50.9 - Heart failure, unspecified (3) DARSHANA (acute kidney injury) Current visit: Yes Status: Acute Category: Medical Code(s): N17.9 - Acute kidney failure, unspecified (4) A-fib Current visit: Yes Status: Acute Qualifiers: Atrial fibrillation type: unspecified Qualified Code(s): I48.91 - Unspecified atrial fibrillation Category: Medical Code(s): I48.91 - Unspecified atrial fibrillation (5) Hyperlipidemia Current visit: Yes Status: Chronic Category: Medical Code(s): E78.5 - Hyperlipidemia, unspecified (6) COPD (chronic obstructive pulmonary disease) Current visit: Yes Status: Chronic Category: Medical Code(s): J44.9 - Chronic obstructive pulmonary disease, unspecified (7) GERD (gastroesophageal reflux disease) Current visit: Yes Status: Chronic Category: Medical Code(s): K21.9 - G werner-esophageal reflux disease without esophagitis (8) Type 2 diabetes mellitus Current visit: Yes Status: Chronic Category: Medical Code(s): E11.9 - Type 2 diabetes mellitus without complications (9) Coronary artery disease Current visit: Yes Status: Chronic Category: Medical Code(s): I25.10 - Atherosclerotic heart disease of [place] coronary artery without angina pectoris (10) Hypothyroidism Current visit: Yes Status: Chronic Qualifiers: Hypothyroidism type: acquired Qualified Code(s): E03.9 - Hypothyroidism, unspecified Category: Medical Code(s): E03.9 - Hypothyroidism, unspecified (11) Solitary kidney Current visit: Yes Status: Chronic Category: Medical Code(s): Q60.0 - Renal agenesis, unilateral - Assessment and plan all Dx Assessment and Plan for all problems:: Discharge to home. Follow-up next Saturday in [place]. Note med list addition of furosemide 20 mg a day and potassium chloride 10 mEq daily.
--- NOTE | 2019-07-12 07:47 | Electrocardiograph Report ---
APPROVED REPORT Exam: Resting ECG HR:77 bpm ECG Measurements Heart Rate 77 AXES QRSd 84 QRS 78 QT 378 T11 QTc 427 <Conclusion> Atrial fibrillation with premature ventricular or aberrantly conducted complexes Low voltage QRS Abnormal ECG Electronically signed by : Kt Mahoney, 07/12/2019 07:47:40
--- NOTE | 2019-07-12 21:19 | Discharge Summary ---
General - General Admission date:: 07/10/19 Discharge date: 07/11/19 HPI HPI: Ms. Kaminski is an 88-year-old female with a history of hyperlipidemia, hypothyroidism, solitary kidney, COPD, GERD, type 2 diabetes, and coronary artery disease. Her carriage rider is Dr. Keane and she thinks she has received 2 stents in the past, one in 2011 and one in 2014. She states approximately 1 week ago she had some left-sided chest pain that radiated up into her neck. This resolved on its own. She woke up in the middle of the night last night with left-sided chest pain that radiated into her back. She states she was very short of breath but denied any diaphoresis. The pain continued to worsen over the next hour, therefore she presented to the emergency room. She states she was given aspirin and nitroglycerin in the emergency room and her chest pain i mproved. By the time she reached the second floor, it was gone and has not returned. She did feel some palpitations along with the chest pain. She has a family history of heart disease. She does not currently smoke. She was admitted for further evaluation and treatment and cardiology was consulted. Hospital Course Hospital Course: The patient's chest x-ray showed CHF with small bilateral pleural effusions. She had a chest CT showing cardiomegaly and bilateral effusions. Cardiology was consulted and an echo was ordered. Patient does have a solitary kidney and renal insufficiency. Dr. Rodriguez felt her CHF would need to be treated with Lasix. The patient's echo showed an EF of 55%. She was seen by cardiology and they felt, due to her CHF, they would hold off on further cardiac testing. The patient was diuresed with Lasix and felt much better. She had less shortness of breath and maintained a good oxygen saturation on room air. She did lose weight and her lungs were clear. Her edema improved and she wanted to be discharged. She was able to be discharged home and will follow-up next week in [place]. Lasix 20 mg a day as well as potassium 10 mEq daily will be added to her medication regimen. Objective Vital signs: Temp Pulse Resp BP Pulse Ox 97.8 F 70 24 136/52 L 96 07/11/19 12:00 07/11/19 12:00 07/11/19 12:00 07/11/19 12:00 07/11/19 12:00 Narrative: - Constitutional no acute distress - *Routine HEENT Exam Head: Present: normocephalic Eye: Present: EOMI, PERRL ENT: Present: mucous membranes dry - *Routine Neck Exam Present: supple. Absent: carotid bruit, lymphadenopathy - *Routine Respiratory Exam Present: CTA bilaterally - *Routine Cardiovascular Exam Present: irregularly irregular - *Routine Abdominal Exam Present: soft, normoactive bowel sounds. Absent: tenderness - *Routine Extremities Exam Absent: cyanosis, clubbing, edema - *Routine Skin Exam Present: warm. Absent: rash - *Routine Neurological Exam Present: alert, oriented X3 DS: Diagnosis - Discharge Diagnosis (1) Chest pain Status: Acute (2) CHF (congestive heart failure) Status: Acute (3) DARSHANA (acute kidney injury) Status: Acute (4) A-fib Status: Acute (5) Hyperlipidemia Status: Chronic (6) COPD (chronic obstructive pulmonary disease) Status: Chronic (7) GERD (gastroesophageal reflux disease) Status: Chronic (8) Type 2 diabetes mellitus Status: Chronic (9) Coronary artery disease Status: Chronic (10) Hypothyroidism Status: Chronic (11) Solitary kidney Status: Chronic Discharge Plan - Patient Discharge Instructions ACTIVITY: Continue current activity DIET: continue same diet Patient Instructions: Hypothyroidism (Alternative Therapy), DI for Atrial Fibrillation, DI for Chronic Pain -- Adult, DI for Acute Kidney Injury - Follow up Plan Follow up with: Charlotte Rodriguez MD [Primary Care Provider] - 07/14/19 Disposition: Home, Self-Nursing Home Medications: Home Medications Medication Instructions Recorded Confirmed Type amlodipine 5 mg tablet 5 mg PO BID 07/25/17 07/10/19 History apixaban 5 mg tablet 2.5 mg PO BID 07/25/17 07/10/19 History isosorbide mononitrate 30 mg 30 mg PO DAILY 07/25/17 07/10/19 History tablet,extended release 24 hr metformin 500 mg tablet 500 mg PO BID 07/25/17 07/10/19 History metoprolol succinate 50 mg 50 mg PO DAILY 07/25/17 07/10/19 History tablet,extended release 24 hr Cyanocobalamin/Folic AC/Vit B6 1 tab PO DAILY 07/10/19 07/10/19 History [Folbee Tablet] Levothyroxine Sodium 137 mcg PO DAILY 07/10/19 07/10/19 History [Levothyroxine 137mcg (0.137mg) Tab] Losartan/Hydrochlorothiazide 1 tab PO DAILY 07/10/19 07/10/19 History [Losartan-Hctz 100-12.5 mg Tab] Sertraline HCl 25 mg PO DAILY 07/10/19 07/10/19 History Furosemide [Furosemide 20mg Tab] 20 mg PO DAILY #30 tab 07/11/19 Rx Potassium Chloride [Micro-K 10mEq 10 meq PO DAILY #30 capsule.er 07/11/19 Rx cap] Prescriptions/Medication Reconciliation: New Furosemide [Furosemide 20mg Tab] 20 mg PO DAILY #30 tab Potassium Chloride [Micro-K 10mEq cap] 10 meq PO DAILY #30 capsule.er Continued amlodipine 5 mg tablet 5 mg PO BID apixaban 5 mg tablet 2.5 mg PO BID isosorbide mononitrate 30 mg tablet,extended release 24 hr 30 mg PO DAILY metoprolol succinate 50 mg tablet,extended release 24 hr 50 mg PO DAILY metformin 500 mg tablet 500 mg PO BID Sertraline HCl 25 mg PO DAILY Levothyroxine Sodium [Levothyroxine 137mcg (0.137mg) Tab] 137 mcg PO DAILY Losartan/Hydrochlorothiazide [Losartan-Hctz 100-12.5 mg Tab] 1 tab PO DAILY Cyanocobalamin/Folic AC/Vit B6 [Folbee Tablet] 1 tab PO DAILY - Problem Reconciliation Problems Reviewed?: Yes
== END 2019-07-11 15:20 | disposition home or self-care (01) ==
LOC: 2ND 03:24 → ER 03:24 → 2ND 05:49
PROVIDERS: ADMIT Family Medicine; ATTEND Family Medicine
CPT/HCPCS: 36415; 71020; 71046; 71250; 80048; 80076; 82803; 82962; 83880; 84484; 85025; 93005; 93306; 94640; 94761; 99284; G0378